=== PATIENT | female | born 1960 | race Caucasian/White ===

== ENCOUNTER 2019-03-04 06:18 | Inpatient (IN) | payer OTHER ==
[2019-03-04] MEDS ORDERED: morphine SULFATE/PF (10 MG/10 ML) INJ (08:08)
[2019-03-04] MEDS: CEFAZOLIN 2 GM/50 ML (PMX) 50 ML IVPB (08:08)
[2019-03-04] MEDS ORDERED: MIDAZOLAM 1 MG/ML 2 ML INJ (08:08)
[2019-03-04] MEDS ORDERED: FENTAnyl 50 MCG/ML VIAL (08:08)
[2019-03-04] MEDS ORDERED: POLYMYXIN/BACITRACIN 1L IRRIG (08:42)
[2019-03-04] MEDS: BUPIVACAINE 0.25%/EPI (SDV) 30 ML INJ (08:42)
[2019-03-04] MEDS ORDERED: ONDANSETRON 4 MG INJ (09:51)
[2019-03-04] MEDS ORDERED: CEFAZOLIN 1 GM INJ (09:51)
[2019-03-04] MEDS ORDERED: PROPOFOL 20 ML (09:51)
[2019-03-04] MEDS ORDERED: LIDOCAINE 2% (SDV) 5 ML INJ (09:51)
[2019-03-04] MEDS ORDERED: DIPHENHYDRAMINE 50 MG INJ IV (10:00)
[2019-03-04] MEDS ORDERED: MEPERIDINE 25 MG INJ IV (10:00)
[2019-03-04] MEDS ORDERED: KETOROLAC 30 MG INJ IV (10:00)
[2019-03-04] MEDS ORDERED: ONDANSETRON INJ 6 MG in DEXTROSE 5% 50 ML IVPB (10:00)
[2019-03-04] MEDS ORDERED: ZOLPIDEM 5 MG TAB PO (10:00)
[2019-03-04] MEDS ORDERED: HYDROmorphONE 1 MG/5 ML IV SYRINGE IV ×2 (10:00)
[2019-03-04] MEDS ORDERED: HYDROCODONE/APAP (5/325) TAB PO ×2 (10:00)
[2019-03-04] MEDS ORDERED: NALOXONE (0.4 MG/ML) INJ IV (10:00)
[2019-03-04] MEDS ORDERED: METOCLOPRAMIDE 10 MG INJ IV (10:00)
[2019-03-04] MEDS ORDERED: DIPHENHYDRAMINE 50 MG CAP PO (10:00)
[2019-03-04] MEDS ORDERED: ONDANSETRON 4 MG INJ IV (10:00)
[2019-03-04] MEDS ORDERED: FENTAnyl 50 MCG/ML VIAL IV (10:00)
[2019-03-04] MEDS: METOCLOPRAMIDE 10 MG TAB PO ×2 (12:12→19:53)
[2019-03-04] MEDS: KETOROLAC 30 MG INJ IV ×2 (12:13→19:52)
[2019-03-04] MEDS: LACTATED RINGER'S 1,000 ML IV ×3 (12:15→19:53)
[2019-03-04] MEDS: CEFAZOLIN 1 GM/50 ML (PMX) 50 ML IVPB (17:55)
[2019-03-05] MEDS: CEFAZOLIN 1 GM/50 ML (PMX) 50 ML IVPB ×2 (00:40→08:09)
[2019-03-05] MEDS: METOCLOPRAMIDE 10 MG TAB PO ×2 (00:41→05:21)
[2019-03-05] MEDS: KETOROLAC 30 MG INJ IV ×2 (00:41→05:21)
[2019-03-05] MEDS: LACTATED RINGER'S 1,000 ML IV ×2 (01:51→05:22)
[2019-03-05 05:21] LABS: ADD MAN DIFF? NO
[2019-03-05 05:24] LABS: WHITE BLOOD COUNT 7.8 10^3/ul (4.8-10.8)
[2019-03-05 05:24] LABS: BASOPHILS % 0.4 % (0.0-2.0); EOSINOPHILS # 0.1 10^3/ul (0.0-0.5); EOSINOPHILS % 1.5 % (0.0-7.0); HEMATOCRIT 36.5 % (37.0-47.0); HEMOGLOBIN 12.1 g/dl (12.0-16.0); LYMPHOCYTES # 2.1 10^3/ul (0.8-2.9); LYMPHOCYTES % 26.9 % (15.0-51.0); MEAN CORPUSCULAR HEMOGLOBIN 30.6 pg (29.0-33.0); MEAN CORPUSCULAR HGB CONC 33.2 g/dl (32.0-37.0); MEAN CORPUSCULAR VOLUME 92.2 fl (82.0-101.0); MEAN PLATELET VOLUME 10.8 fl (7.4-10.4); MONOCYTE # 0.7 10^3/ul (0.3-0.9); MONOCYTES % 9.3 % (0.0-11.0); NEUTROPHIL # 4.8 10^3/ul (1.6-7.5); NEUTROPHILS % 61.6 % (39.0-77.0); PLATELET COUNT 216 10^3/UL (140-415); RED BLOOD COUNT 3.96 10^6/ul (4.20-5.40); RED CELL DISTRIBUTION WIDTH 12.7 % (11.5-14.5)
[2019-03-05 05:58] LABS: ANION GAP 5 (5-13); BLOOD UREA NITROGEN 8 mg/dl (7-20); CARBON DIOXIDE 31 mmol/L (21-31); CHLORIDE 104 mmol/L (97-110); CREATININE 0.71 mg/dl (0.44-1.00); SODIUM 140 mmol/L (135-144)
[2019-03-05] MEDS: PHENAZOPYRIDINE 200 MG TAB PO (15:07)
== END 2019-03-05 20:15 | disposition home or self-care (01) | DRG 748 ==
LOC: REC 06:18 → MS1 11:05
PROC: 0JUC0KZ Supplement of Pelvic Region Subcutaneous Tissue and Fascia with Nonautologous Tissue Substitute, Open Approach (ICD-10-PCS; principal; 2019-03-04 08:00)
PROC: 0TSC0ZZ Reposition Bladder Neck, Open Approach (ICD-10-PCS; 2019-03-04 08:00)
DX: N81.10 Cystocele, unspecified (principal); N39.46 Mixed incontinence; N81.6 Rectocele; N81.89 Other female genital prolapse
CPT/HCPCS: 80051; 82565; 84520; 85025; 87086